=== PATIENT | female | born 1985 | race Caucasian/White ===

== ENCOUNTER → 2020-12-14 | Day surgery (SDC) | payer OTHER ==
[~2020-12-14] MED LIST: ADALAT CC60 MG PO; ASPIR 8181 MG PO; CIPRO500 MG PO; COLACE 100MG C100 MG PO; COZAAR 25MG TAB25 MG PO; FLAGYL500 MG PO; HYDROCHLOROTHIA25 MG PO; HYDROCODON-ACE1 EAC4 PO; HYDROCODON-ACE1 EAC6 PO; IBU600 MG PO; IBUPROFEN600 MG PO; LABETALOL HCL100 MG PO; LORTAB 5-325 M1 EACH PO; PRENATAL TABLE1 EAC1 PO; PRENATAL VITAM1 EAC8 PO; TRANDATE 100 M100 MG PO
[2020-12-14 07:10] LABS: HEMOGLOBIN 10.3 gm/dl (12.3-15.3); RED BLOOD COUNT 3.83 M/UL (4.00-5.10); WHITE BLOOD COUNT 8.3 K/UL (4.5-11.0)
[2020-12-14 07:40] LABS: BUN/CREATININE RATIO 23 (0-10)
== END | disposition home or self-care (01) ==
LOC: OR 06:45
PROVIDERS: Orthopaedic Surgery
PROC: 01N50ZZ Release Median Nerve, Open Approach (ICD-10-PCS; principal; 2020-12-14 08:45)
DX: M67.431 Ganglion, right wrist (principal); G56.01 Carpal tunnel syndrome, right upper limb; E66.01 Morbid (severe) obesity due to excess calories; N39.0 Urinary tract infection, site not specified; N93.9 Abnormal uterine and vaginal bleeding, unspecified; Z82.49 Family history of ischemic heart disease and other diseases of the circulatory system
CPT/HCPCS: 36415; 80048; 84703; 85025; J0690; J1100; J1885; J2001; J2250; J2405; J2704; J3010; J7120

== ENCOUNTER → 2020-12-28 | Day surgery (SDC) | payer OTHER ==
[2020-12-28 10:01] LABS: HEMOGLOBIN 11.1 gm/dl (12.3-15.3); RED BLOOD COUNT 4.1 M/UL (4.00-5.10); WHITE BLOOD COUNT 8.1 K/UL (4.5-11.0)
== END | disposition home or self-care (01) ==
LOC: OR 09:10
PROVIDERS: Obstetrics & Gynecology
DX: N93.9 Abnormal uterine and vaginal bleeding, unspecified (principal); I10 Essential (primary) hypertension; Z82.49 Family history of ischemic heart disease and other diseases of the circulatory system; Z80.1 Family history of malignant neoplasm of trachea, bronchus and lung; Z83.2 Family history of diseases of the blood and blood-forming organs and certain disorders involving the immune mechanism
CPT/HCPCS: 36415; 81001; 84703; 85025; J2001; J2250; J2405; J2704; J2795; J3010; J7030; J7120

== ENCOUNTER → 2021-04-24 | Outpatient (CLI) | payer OTHER ==
[2021-04-24 14:07] LABS: HEMOGLOBIN 12.9 gm/dl (12.3-15.3); RED BLOOD COUNT 4.84 M/UL (4.00-5.10)
[2021-04-24 14:31] LABS: BUN/CREATININE RATIO 24 (0-10)
== END ==
LOC: OPSV2 13:30
PROVIDERS: Obstetrics & Gynecology
DX: Z01.812 Encounter for preprocedural laboratory examination (principal); Z01.810 Encounter for preprocedural cardiovascular examination; N93.9 Abnormal uterine and vaginal bleeding, unspecified; I10 Essential (primary) hypertension
CPT/HCPCS: 36415; 80053; 81001; 85025; 93005

== ENCOUNTER 2021-04-27 09:15 | Observation (INO) | payer OTHER ==
[~2021-04-27] VITALS: Ht 170.2 cm; Wt 111.1 kg
[~2021-04-27 09:15] MED LIST changes: -COZAAR 25MG TAB25 MG PO; -HYDROCODON-ACE1 EAC6 PO
[2021-04-27] MEDS ORDERED: COZAAR 25MG TAB25 MG PO (09:54)
[2021-04-27] MEDS ORDERED: IBUPROFEN600 MG PO (14:24)
[2021-04-27] MEDS ORDERED: HYDROCODON-ACE1 EAC6 PO (14:24)
[2021-04-27] MEDS ORDERED: COLACE 100MG C100 MG PO (14:24)
--- NOTE | 2021-04-28 05:14 | NUR ---
PT WAS ABLE TO VOID WITHIN 4 HOURS OF RIVERS CATH D/C
[2021-04-28 06:17] LABS: HEMOGLOBIN 10.7 gm/dl (12.3-15.3)
== END 2021-04-28 14:37 | disposition home or self-care (01) ==
LOC: OR 09:15 → OB 16:10
PROVIDERS: ADMIT Obstetrics & Gynecology
DX: D25.9 Leiomyoma of uterus, unspecified (principal); N72 Inflammatory disease of cervix uteri; N83.8 Other noninflammatory disorders of ovary, fallopian tube and broad ligament; I10 Essential (primary) hypertension; K21.9 Gastro-esophageal reflux disease without esophagitis; E66.01 Morbid (severe) obesity due to excess calories; Z68.36 Body mass index [BMI] 36.0-36.9, adult; Z87.42 Personal history of other diseases of the female genital tract; Z79.899 Other long term (current) drug therapy
CPT/HCPCS: 84703; 85014; 85018; G0378; J0690; J1100; J2001; J2250; J2270; J2405; J2550; J2704; J2710; J2765; J2795; J3010; J7120

== ENCOUNTER → 2021-07-11 | Outpatient (CLI) | payer OTHER ==
[~2021-07-11] MED LIST changes: +COZAAR 25MG TAB25 MG PO; +HYDROCODON-ACE1 EAC6 PO
== END ==
LOC: CT 07:25
DX: R31.9 Hematuria, unspecified (principal)
CPT/HCPCS: 36415; 82565; Q9967

== ENCOUNTER 2021-11-29 12:58 | Emergency (ER) | payer OTHER | END 2021-11-29 14:41 | disposition home or self-care (01) | LOC: ER1 12:58 | DX: R51.9 Headache, unspecified (principal); Z86.16 Personal history of COVID-19 | CPT/HCPCS: 93005; 96372; 99284; J1885 ==

== ENCOUNTER → 2021-12-19 | Outpatient (CLI) | payer OTHER | LOC: LBRF 15:29 | DX: R31.9 Hematuria, unspecified (principal) | CPT/HCPCS: 81001; 87086 ==

== ENCOUNTER → 2022-06-14 | Outpatient (CLI) | payer OTHER | LOC: CT 10:48 | DX: E27.9 Disorder of adrenal gland, unspecified (principal) | CPT/HCPCS: Q9967 ==